=== PATIENT | male | born 1960 | race Caucasian/White ===

== ENCOUNTER 2020-06-19 09:58 | Inpatient (IN) | payer MEDICAID ==
[~2020-06-19] VITALS: Ht 182.9 cm; Wt 94.3 kg
[2020-06-19] MEDS ORDERED: CEFTRIAXONE 2 G PREMIX 50 ML IV ONE (10:45)
[2020-06-19] MEDS ORDERED: OCTREOTIDE 1,000 MCG in SODIUM CHLORIDE 0.9% 100 ML IV ONE (10:45)
[2020-06-19] MEDS ORDERED: PANTOPRAZOLE SODIUM 40 MG/VIAL IV ONE (10:45)
[2020-06-19] MEDS ORDERED: MORPHINE SULFATE 4 MG/ML CPJ (NOT FOR IM USE) IV ONE ×2 (11:00→13:45)
[2020-06-19] MEDS ORDERED: OCTREOTIDE ACETATE 50 MCG/ML 1ML IV ONE (11:45)
[2020-06-19 12:14] LABS: BASOPHILS % 0.6 % (0.0-2.0); EOSINOPHILS % 0.2 % (0.0-5.0); LYMPHOCYTES % 15.9 % (20.0-50.0); MEAN CORPUSCULAR HEMOGLOBIN 33.6 pg (28.0-32.0); MEAN CORPUSCULAR VOLUME 107.3 fL (80.0-94.0); MEAN PLATELET VOLUME 8.1 fl (7.4-10.4); MONOCYTES % 4.6 % (2.0-8.0); NEUTROPHILS % 78.7 % (40.0-76.0); PLATELET 410 x1000/uL (130-400); RED BLOOD CELL COUNT 1.18 mill/uL (4.7-6.1); RED CELL DISTRIBUTION WIDTH 17.1 % (11.6-14.6)
[2020-06-19 12:17] LABS: CHLORIDE 108 mEq/L (98-107); HEMATOCRIT. 12.6 % (42.0-52.0)
[2020-06-19 12:19] LABS: INR 1.1; PROTHROMBIN TIME 11.9 sec (9.6-11.0)
[2020-06-19] MEDS ORDERED: OCTREOTIDE 1,000 MCG in SODIUM CHLORIDE 0.9% 100 ML IV SCH (13:00)
[2020-06-19 18:05] VITALS: BP 103/68
[2020-06-19] MEDS ORDERED: MORPHINE SULFATE 2 MG/ML CPJ (NOT FOR IM USE) IV PRN (18:45)
[2020-06-19] MEDS ORDERED: ONDANSETRON HCL 4MG/2ML INJ IV PRN (19:15)
[2020-06-19] MEDS ORDERED: ACETAMINOPHEN 325MG TABLET PO PRN (19:15)
[2020-06-19 19:30] VITALS: BP 103/68
[2020-06-19 20:00] VITALS: BP 95/27
[2020-06-19] MEDS: HYDROMORPHONE HCL/PF 2MG/ML CPJ IV PRN (20:13)
[2020-06-19 22:00] VITALS: BP 82/54
[2020-06-19] MEDS: PANTOPRAZOLE SODIUM 40 MG/VIAL IV SCH (22:15)
[2020-06-19] MEDS: PIPERACILLIN/TAZOBACTAM 3.375 G in DEXT 5% WATER 100 ML IV SCH (22:19)
[2020-06-20] VITALS (27 sets, daily range): BP systolic 82–105; BP diastolic 44–67
[2020-06-20] MEDS: HYDROMORPHONE HCL/PF 2MG/ML CPJ IV PRN ×4 (00:52→13:17)
[2020-06-20] MEDS ORDERED: OMEP20TA15 MT (03:40)
[2020-06-20] MEDS ORDERED: MULT-1146 MT (03:40)
[2020-06-20] MEDS ORDERED: MAGN400C PO (03:40)
[2020-06-20] MEDS: PIPERACILLIN/TAZOBACTAM 3.375 G in DEXT 5% WATER 100 ML IV SCH ×3 (04:16→20:57)
[2020-06-20] MEDS: PANTOPRAZOLE SODIUM 40 MG/VIAL IV SCH ×2 (09:23→17:19)
[2020-06-20 10:24] LABS: HEMATOCRIT 20.6 % (42.0-52.0); HEMOGLOBIN 6.8 g/dL (14.0-18.0)
[2020-06-20] MEDS ORDERED: OCTREOTIDE 1,000 MCG in SODIUM CHLORIDE 0.9% 98 ML IV PRN (10:45)
[2020-06-20] MEDS: OCTREOTIDE 1,000 MCG in SODIUM CHLORIDE 0.9% 98 ML IV SCH (12:53)
[2020-06-20] MEDS ORDERED: DIPHENHYDRAMINE 50MG/ML VIAL IV PRN (14:15)
[2020-06-20] MEDS ORDERED: ACETAMINOPHEN 650MG SUPP PR PRN (14:15)
[2020-06-20] MEDS ORDERED: IPRATROPIUM/ALBUTEROL 0.5-3(2.5)MG/3ML NEB HHN PRN (14:15)
[2020-06-20] MEDS ORDERED: LORAZEPAM 2MG/ML CPJ IV PRN (14:15)
[2020-06-20] MEDS ORDERED: BISACODYL 10MG SUPP PR PRN (14:15)
[2020-06-20] MEDS ORDERED: ACETAMINOPHEN 325MG TABLET PO PRN (14:15)
[2020-06-20] MEDS ORDERED: MORPHINE SULFATE 2 MG/ML CPJ (NOT FOR IM USE) IV PRN (14:30)
[2020-06-20 15:06] LABS: BG BASE EXCESS -10.9 mmol/L (-2.0-2.0); BG CARBOXYHEMOGLOBIN 0.5 % (0.5-1.5); BG DEOXYHEMOGLOBIN 10.8 % (0.0-5.0); BG FRACTION INSPIRED OXYGEN 21; BG HCO3 ACT 14.6 mmol/L (22.0-26.0); BG METHEMOGLOBIN 0.1 % (0.0-1.5); BG OXYGEN SATURATION 89.1 % (92.0-98.5); BG OXYHEMOGLOBIN 88.6 % (94.0-97.0); BG PCO2 31.1 mmHg (35.0-45.0); BG PO2 60.1 mmHg (75.0-100.0); BG SAMPLE SITE RIGHT RADIAL; BG TOTAL HEMOGLOBIN 7.8 g/dL (12.0-18.0); BG VENT MODE ROOM AIR
[2020-06-20] MEDS: DEXT 5%/0.45% NACL 1000ML 1,000 ML IV SCH (17:19)
[2020-06-20] MEDS: METOCLOPRAMIDE HCL 10MG/2ML VIAL IV SCH (17:19)
[2020-06-20] MEDS: MORPHINE SULFATE 4 MG/ML CPJ (NOT FOR IM USE) IV PRN (18:26)
[2020-06-20 21:20] LABS: HEMATOCRIT 24.6 % (42.0-52.0); HEMOGLOBIN 8.2 g/dL (14.0-18.0)
[2020-06-21] VITALS (11 sets, daily range): BP systolic 89–128; BP diastolic 53–79
[2020-06-21] MEDS: METOCLOPRAMIDE HCL 10MG/2ML VIAL IV SCH ×5 (00:35→23:48)
[2020-06-21] MEDS: MORPHINE SULFATE 4 MG/ML CPJ (NOT FOR IM USE) IV PRN ×6 (01:10→23:44)
[2020-06-21] MEDS: PIPERACILLIN/TAZOBACTAM 3.375 G in DEXT 5% WATER 100 ML IV SCH ×3 (04:27→20:09)
[2020-06-21] MEDS: DEXT 5%/0.45% NACL 1000ML 1,000 ML IV SCH ×3 (06:24→21:54)
[2020-06-21] MEDS: PANTOPRAZOLE SODIUM 40 MG/VIAL IV SCH ×2 (08:19→18:50)
[2020-06-21 10:08] LABS: HEMATOCRIT 24.7 % (42.0-52.0); HEMOGLOBIN 8.4 g/dL (14.0-18.0)
[2020-06-21 10:14] LABS: VITAMIN B12 SERUM 585 pg/mL (211-911)
[2020-06-21 10:16] LABS: FOLIC ACID (FOLATE) SERUM > 20.00 ng/mL (>5.38)
[2020-06-21 10:32] LABS: HEPATITIS B SURFACE ANTIGEN NEGATIVE
[2020-06-21 11:00] LABS: HEPATITIS A AB IGM NEGATIVE (NEGATIVE)
[2020-06-21 13:15] LABS: PARTIAL THROMBOPLASTIN TIME 23.4 sec (23.4-31.0); PROTHROMBIN TIME 10.3 sec (9.6-11.0)
[2020-06-21] MEDS: OCTREOTIDE 1,000 MCG in SODIUM CHLORIDE 0.9% 98 ML IV SCH (13:35)
[2020-06-21] MEDS ORDERED: MAGNESIUM 1 G PREMIX 100 ML IV SCH (15:00)
[2020-06-21 15:04] LABS: CLARITY URINE CLEAR (CLEAR); COLOR URINE YELLOW (YELLOW); KETONES URINE NEGATIVE (NEGATIVE); LEUKOCYTE ESTERASE URINE NEGATIVE (NEGATIVE); NITRITE URINE NEGATIVE (NEGATIVE); OCCULT BLOOD URINE NEGATIVE (NEGATIVE); PROTEIN URINE TRACE (NEGATIVE); SPECIFIC GRAVITY URINE 1.015 (1.005-1.030); UROBILINOGEN URINE 0.2 E.U./dL (0.2-1.0)
[2020-06-21] MEDS ORDERED: MIDAZOLAM HCL 5 MG/5 ML VIAL ONE (16:14)
[2020-06-21] MEDS ORDERED: FENTANYL CITRATE/PF 50MCG/ML 2ML VIAL ONE (16:15)
[2020-06-21] MEDS ORDERED: FENTANYL CITRATE/PF 50MCG/ML 2ML VIAL IV PRN (16:30)
[2020-06-21] MEDS ORDERED: MIDAZOLAM HCL 5 MG/ML VIAL IV PRN (16:32)
[2020-06-21] MEDS ORDERED: DIAZEPAM 5 MG/ML 2ML CPJ IV PRN (16:35)
[2020-06-21] MEDS ORDERED: DIPHENHYDRAMINE 50MG/ML VIAL ONE (16:36)
[2020-06-21] MEDS ORDERED: DIAZEPAM 5 MG/ML 2ML CPJ ONE (16:37)
[2020-06-21] MEDS: SUCRALFATE 1 G/10 ML UDC PO SCH ×2 (18:51→20:10)
[2020-06-22] VITALS (12 sets, daily range): BP systolic 85–140; BP diastolic 39–78
[2020-06-22] MEDS: PIPERACILLIN/TAZOBACTAM 3.375 G in DEXT 5% WATER 100 ML IV SCH ×3 (03:44→20:18)
[2020-06-22] MEDS: MORPHINE SULFATE 4 MG/ML CPJ (NOT FOR IM USE) IV PRN ×5 (03:46→20:17)
[2020-06-22] MEDS: SUCRALFATE 1 G/10 ML UDC PO SCH ×4 (05:24→20:26)
[2020-06-22] MEDS: METOCLOPRAMIDE HCL 10MG/2ML VIAL IV SCH ×3 (05:24→17:02)
[2020-06-22] MEDS: PANTOPRAZOLE SODIUM 40 MG/VIAL IV SCH ×2 (08:05→16:12)
[2020-06-22] MEDS: DEXT 5%/0.45% NACL 1000ML 1,000 ML IV SCH ×2 (08:05→16:12)
[2020-06-22 09:25] LABS: CHLORIDE 113 mEq/L (98-107)
[2020-06-22] MEDS: HYDROCODONE/ACETAMINOPHEN 10/325MG TABLET PO PRN ×2 (11:25→17:44)
[2020-06-22] MEDS ORDERED: SODIUM POLYSTYRENE SULFONATE 15 G/60 ML BOT PO SCH (12:00)
[2020-06-22 12:14] LABS: BASOPHILS % 0.4 % (0.0-2.0); EOSINOPHILS % 3.9 % (0.0-5.0); HEMATOCRIT. 25.9 % (42.0-52.0); HEMOGLOBIN. 8.7 g/dL (14.0-18.0); LYMPHOCYTES % 16.2 % (20.0-50.0); MEAN CORPUSCULAR HEMOGLOBIN 31.1 pg (28.0-32.0); MEAN CORPUSCULAR VOLUME 92.4 fL (80.0-94.0); MEAN PLATELET VOLUME 7.1 fl (7.4-10.4); MONOCYTES % 6.8 % (2.0-8.0); NEUTROPHILS % 72.7 % (40.0-76.0); PLATELET 372 x1000/uL (130-400)
[2020-06-22] MEDS: OCTREOTIDE 1,000 MCG in SODIUM CHLORIDE 0.9% 98 ML IV SCH (13:18)
[2020-06-23] VITALS (14 sets, daily range): BP systolic 90–134; BP diastolic 47–114
[2020-06-23] MEDS: METOCLOPRAMIDE HCL 10MG/2ML VIAL IV SCH ×3 (00:15→13:06)
[2020-06-23] MEDS: MORPHINE SULFATE 4 MG/ML CPJ (NOT FOR IM USE) IV PRN ×6 (00:15→21:26)
[2020-06-23] MEDS: PIPERACILLIN/TAZOBACTAM 3.375 G in DEXT 5% WATER 100 ML IV SCH ×3 (04:35→21:24)
[2020-06-23] MEDS: SUCRALFATE 1 G/10 ML UDC PO SCH ×4 (06:22→21:25)
[2020-06-23] MEDS: HYDROCODONE/ACETAMINOPHEN 10/325MG TABLET PO PRN ×3 (07:14→19:11)
[2020-06-23] MEDS: PANTOPRAZOLE SODIUM 40 MG/VIAL IV SCH ×2 (08:43→21:24)
[2020-06-23] MEDS ORDERED: SODIUM CHLORIDE 0.9% 500 ML IV ONE (12:00)
[2020-06-23] MEDS ORDERED: LACTULOSE 20G/30ML UDC PO NR (12:00)
[2020-06-23 12:14] LABS: BASOPHILS % 0.5 % (0.0-2.0); EOSINOPHILS % 3.3 % (0.0-5.0); HEMATOCRIT. 27.3 % (42.0-52.0); HEMOGLOBIN. 9.1 g/dL (14.0-18.0); MEAN CORPUSCULAR HEMOGLOBIN 31.4 pg (28.0-32.0); MEAN CORPUSCULAR VOLUME 94.4 fL (80.0-94.0); MEAN PLATELET VOLUME 7.5 fl (7.4-10.4); MONOCYTES % 7.9 % (2.0-8.0); NEUTROPHILS % 74.3 % (40.0-76.0); PLATELET 362 x1000/uL (130-400); RED BLOOD CELL COUNT 2.89 mill/uL (4.7-6.1); RED CELL DISTRIBUTION WIDTH 16.1 % (11.6-14.6)
[2020-06-23 12:21] LABS: CHLORIDE 112 mEq/L (98-107)
[2020-06-23 14:57] LABS: BG BASE EXCESS -8.2 mmol/L (-2.0-2.0); BG CARBOXYHEMOGLOBIN 0.1 % (0.5-1.5); BG DEOXYHEMOGLOBIN 2.7 % (0.0-5.0); BG HCO3 ACT 16.5 mmol/L (22.0-26.0); BG METHEMOGLOBIN 0.5 % (0.0-1.5); BG OXYGEN SATURATION 97.3 % (92.0-98.5); BG OXYHEMOGLOBIN 96.7 % (94.0-97.0); BG PCO2 30.6 mmHg (35.0-45.0); BG PH 7.349 (7.350-7.450); BG PO2 102.7 mmHg (75.0-100.0); BG SAMPLE SITE RIGHT RADIAL; BG VENT MODE ROOM AIR
[2020-06-23] MEDS: DEXT 5%/0.45% NACL 1000ML 1,000 ML IV SCH (15:37)
[2020-06-23] MEDS: DOCUSATE SODIUM 100MG CAPSULE PO SCH (17:00)
[2020-06-24] VITALS: BP 107/72
[2020-06-24] MEDS: HYDROCODONE/ACETAMINOPHEN 10/325MG TABLET PO PRN ×3 (01:22→19:46)
[2020-06-24] MEDS: MORPHINE SULFATE 4 MG/ML CPJ (NOT FOR IM USE) IV PRN ×6 (01:36→23:37)
[2020-06-24 03:00] VITALS: BP 102/64
[2020-06-24] MEDS: PIPERACILLIN/TAZOBACTAM 3.375 G in DEXT 5% WATER 100 ML IV SCH ×3 (04:35→20:23)
[2020-06-24] MEDS: DEXT 5%/0.45% NACL 1000ML 1,000 ML IV SCH ×2 (04:36→17:16)
[2020-06-24 06:13] LABS: BASOPHILS % 0.5 % (0.0-2.0); EOSINOPHILS % 3.8 % (0.0-5.0); HEMATOCRIT. 25.8 % (42.0-52.0); HEMOGLOBIN. 8.5 g/dL (14.0-18.0); LYMPHOCYTES % 18.9 % (20.0-50.0); MEAN CORPUSCULAR HEMOGLOBIN 31.4 pg (28.0-32.0); MEAN CORPUSCULAR VOLUME 95.3 fL (80.0-94.0); MEAN PLATELET VOLUME 7.2 fl (7.4-10.4); MONOCYTES % 8.4 % (2.0-8.0); NEUTROPHILS % 68.4 % (40.0-76.0); PLATELET 386 x1000/uL (130-400); RED CELL DISTRIBUTION WIDTH 16.6 % (11.6-14.6)
[2020-06-24 06:17] LABS: CHLORIDE 112 mEq/L (98-107)
[2020-06-24 08:00] VITALS: BP 115/62
[2020-06-24] MEDS: SUCRALFATE 1 G/10 ML UDC PO SCH ×4 (08:17→20:24)
[2020-06-24] MEDS: DOCUSATE SODIUM 100MG CAPSULE PO SCH ×2 (08:17→17:15)
[2020-06-24] MEDS: PANTOPRAZOLE SODIUM 40 MG/VIAL IV SCH ×2 (08:17→20:23)
[2020-06-24] MEDS ORDERED: MAGNESIUM 2 G PREMIX 50 ML IV SCH ×2 (10:00→12:00)
[2020-06-24] MEDS ORDERED: METOPROLOL TARTRATE 25MG TABLET PO NR (11:00)
[2020-06-24 12:00] VITALS: BP 107/31
[2020-06-24 12:14] LABS: HEMATOCRIT 24.4 % (42.0-52.0); HEMOGLOBIN 8.1 g/dL (14.0-18.0)
[2020-06-24 16:00] VITALS: BP 159/135
[2020-06-24 20:00] VITALS: BP 144/81
[2020-06-24] MEDS: METOPROLOL TARTRATE 25MG TABLET PO SCH (20:24)
[2020-06-24 21:46] LABS: HEMATOCRIT 31.4 % (42.0-52.0); HEMOGLOBIN 9.5 g/dL (14.0-18.0)
[2020-06-25] VITALS (8 sets, daily range): BP systolic 91–139; BP diastolic 58–90
[2020-06-25] MEDS: HYDROCODONE/ACETAMINOPHEN 10/325MG TABLET PO PRN ×2 (02:05→11:54)
[2020-06-25] MEDS: MORPHINE SULFATE 4 MG/ML CPJ (NOT FOR IM USE) IV PRN ×3 (04:17→13:32)
[2020-06-25] MEDS: DEXT 5%/0.45% NACL 1000ML 1,000 ML IV SCH (04:37)
[2020-06-25 05:59] LABS: BASOPHILS % 0.5 % (0.0-2.0); HEMATOCRIT. 22.2 % (42.0-52.0); HEMOGLOBIN. 7.4 g/dL (14.0-18.0); LYMPHOCYTES % 21.7 % (20.0-50.0); MEAN CORPUSCULAR HEMOGLOBIN 31.4 pg (28.0-32.0); MEAN CORPUSCULAR VOLUME 94.3 fL (80.0-94.0); MEAN PLATELET VOLUME 7.6 fl (7.4-10.4); MONOCYTES % 7.3 % (2.0-8.0); NEUTROPHILS % 65.5 % (40.0-76.0); PLATELET 343 x1000/uL (130-400); RED BLOOD CELL COUNT 2.35 mill/uL (4.7-6.1); RED CELL DISTRIBUTION WIDTH 16.6 % (11.6-14.6)
[2020-06-25] MEDS: SUCRALFATE 1 G/10 ML UDC PO SCH ×3 (07:58→17:28)
[2020-06-25] MEDS: METOPROLOL TARTRATE 25MG TABLET PO SCH (08:07)
[2020-06-25] MEDS: DOCUSATE SODIUM 100MG CAPSULE PO SCH ×2 (08:09→17:28)
[2020-06-25] MEDS: PANTOPRAZOLE SODIUM 40 MG/VIAL IV SCH (08:18)
[2020-06-25 09:42] LABS: HEMATOCRIT 29.2 % (42.0-52.0); HEMOGLOBIN 9.4 g/dL (14.0-18.0)
[2020-06-25] MEDS ORDERED: MAGNESIUM 2 G PREMIX 50 ML IV NR (11:00)
[2020-06-25] MEDS ORDERED: MORPHINE SULFATE 4 MG/ML CPJ (NOT FOR IM USE) IV NR (18:00)
== END 2020-06-25 18:15 | disposition hospice, home (50) | DRG 241 ==
LOC: ER 09:58 → 5EST 13:25 → EDBEDREQTM 13:27 → EDBEDREQ 13:27 → ENRESERV 14:33
PROVIDERS: ADMIT Internal Medicine; ATTEND Internal Medicine
PROC: 30233K1 Transfusion of Nonautologous Frozen Plasma into Peripheral Vein, Percutaneous Approach (ICD-10-PCS; 2020-06-19)
PROC: 30233N1 Transfusion of Nonautologous Red Blood Cells into Peripheral Vein, Percutaneous Approach (ICD-10-PCS; 2020-06-19)
PROC: 0DB68ZX Excision of Stomach, Via Natural or Artificial Opening Endoscopic, Diagnostic (ICD-10-PCS; principal; 2020-06-21)
DX: K28.4 Chronic or unspecified gastrojejunal ulcer with hemorrhage (principal); E87.5 Hyperkalemia; E87.2 Acidosis; K70.30 Alcoholic cirrhosis of liver without ascites; N17.9 Acute kidney failure, unspecified; N18.9 Chronic kidney disease, unspecified; E88.09 Other disorders of plasma-protein metabolism, not elsewhere classified; I25.10 Atherosclerotic heart disease of native coronary artery without angina pectoris; E83.42 Hypomagnesemia; E44.0 Moderate protein-calorie malnutrition; I27.20 Pulmonary hypertension, unspecified; K56.7 Ileus, unspecified; E66.01 Morbid (severe) obesity due to excess calories; F10.20 Alcohol dependence, uncomplicated; R73.9 Hyperglycemia, unspecified; Z60.2 Problems related to living alone; Z20.828 Contact with and (suspected) exposure to other viral communicable diseases; Z68.28 Body mass index [BMI] 28.0-28.9, adult; Z98.84 Bariatric surgery status; D53.9 Nutritional anemia, unspecified; S31.109A Unspecified open wound of abdominal wall, unspecified quadrant without penetration into peritoneal cavity, initial encounter; I13.0 Hypertensive heart and chronic kidney disease with heart failure and stage 1 through stage 4 chronic kidney disease, or unspecified chronic kidney disease; I50.33 Acute on chronic diastolic (congestive) heart failure; R00.0 Tachycardia, unspecified
CPT/HCPCS: 36415; 36600; 71045; 74018; 74176; 76700; 80048; 80053; 81003; 82270; 82375; 82378; 82607; 82746; 82805; 82977; 83605; 83735; 84132; 84207; 84443; 84484; 85014; 85018; 85025; 86705; 86709; 86803; 86850; 86900; 86920; 86927; 87340; 87426; 88305; 88313; 93005; 93306; 93970; 96365; 97116; 97162; 99291; C9113; J0696; J1170; J1200; J2060; J2250; J2270; J2354; J2543; J2765; J3010; J3475; J7050; J7060; P9016; P9017